=== PATIENT | male | born 1980 | race Caucasian/White ===

== ENCOUNTER 2016-10-31 20:35 | Emergency (ER) | payer OTHER ==
[~2016-10-31] VITALS: Ht 180.3 cm; Wt 74.8 kg
[2016-10-31 20:36] VITALS: BP 138/80
[2016-10-31] MEDS ORDERED: NORCO 5-325 TA1 EACH PO (20:49)
[2016-10-31] MEDS ORDERED: KEFLEX250 M1 PO (20:49)
== END 2016-10-31 21:00 | disposition home or self-care (01) ==
LOC: ER 20:35
DX: S02.5XXA Fracture of tooth (traumatic), initial encounter for closed fracture (principal); Z87.442 Personal history of urinary calculi; Z88.1 Allergy status to other antibiotic agents; X58.XXXA Exposure to other specified factors, initial encounter; Y93.89 Activity, other specified; Y92.89 Other specified places as the place of occurrence of the external cause; Y99.8 Other external cause status

== ENCOUNTER 2016-11-05 18:33 | Emergency (ER) | payer OTHER ==
[~2016-11-05] VITALS: Ht 180.3 cm; Wt 74.8 kg
[~2016-11-05 18:33] MED LIST: KEFLEX250 M1 PO; NORCO 5-325 TA1 EACH PO
[2016-11-05] MEDS ORDERED: CLEOCIN HCL150 MG PO (19:21)
[2016-11-05] MEDS ORDERED: MOBIC15 MG PO (19:21)
[2016-11-05] MEDS ORDERED: NORCO 5-325 TA1 EACH PO (19:25)
[2016-11-05 19:40] VITALS: BP 139/75
== END 2016-11-05 19:41 | disposition home or self-care (01) ==
LOC: ER 18:33
DX: K08.89 Other specified disorders of teeth and supporting structures (principal); F17.210 Nicotine dependence, cigarettes, uncomplicated; Z87.442 Personal history of urinary calculi; Z88.1 Allergy status to other antibiotic agents

== ENCOUNTER 2016-11-10 16:51 | Emergency (ER) | payer OTHER ==
[~2016-11-10] VITALS: Ht 177.8 cm; Wt 77.1 kg
[~2016-11-10 16:51] MED LIST changes: +CLEOCIN HCL150 MG PO; +MOBIC15 MG PO
[2016-11-10] MEDS ORDERED: ULTRAM 50MG TAB50 MG PO (17:24)
[2016-11-10 17:40] VITALS: BP 118/82
== END 2016-11-10 17:40 | disposition home or self-care (01) ==
LOC: ER 16:51
DX: K02.9 Dental caries, unspecified (principal); F17.210 Nicotine dependence, cigarettes, uncomplicated; Z87.442 Personal history of urinary calculi; Z88.1 Allergy status to other antibiotic agents